=== PATIENT | male | born 1960 | race American Indian/Alaskan Native ===

== ENCOUNTER 2017-12-01 19:47 | Inpatient (IN) | payer MEDICAID, OTHER ==
[2017-12-01 20:43] LABS: BASO # 0.1 K/uL (0.0-0.2); EOS % 0.5 % (0.0-4.0); LYMPH # 2.8 K/uL (1.0-4.3); NEUT # 4.8 K/uL (1.8-7.0); NRBC % 0.1 % (0.0-2.0); WHITE BLOOD COUNT 8.6 K/uL (4.8-10.8)
[2017-12-01 20:52] LABS: URINE BILIRUBIN NEGATIVE (NEGATIVE); URINE BLOOD NEGATIVE (NEGATIVE); URINE CLARITY Clear (Clear); URINE COLOR Yellow (YELLOW); URINE GLUCOSE (UA) NORMAL (Normal); URINE LEUKOCYTE ESTERASE NEG Leu/uL (Negative); URINE PROTEIN NEGATIVE (NEGATIVE)
[2017-12-01 20:54] LABS: BASO % 0.6 % (0.0-2.0); LYMPH % 32.4 % (20.0-40.0); MEAN CELL VOLUME 87.2 fL (80.0-94.0); MEAN CORPUSCULAR HEMOGLOBIN 28.7 pg (27.0-31.0); MEAN PLATELET VOLUME 10.3 fL (7.2-11.7); MONO # 0.9 K/uL (0.0-0.8); MONO % 10.1 % (0.0-10.0); NEUT % 56.4 % (50.0-75.0); RBC 4.17 Mil/uL (4.40-5.90); RED CELL DISTRIBUTION WIDTH 14.9 % (11.5-14.5)
[2017-12-01 20:56] LABS: ALB/GLOB RATIO 0.8 (1.0-2.1); ALBUMIN 4.2 g/dL (3.5-5.0); ALT/SGPT 115 U/L (21-72); AST/SGOT 364 U/L (17-59); BLOOD UREA NITROGEN 8 mg/dL (9-20); CALCIUM 8.6 mg/dl (8.6-10.4); GFR AFRICAN-AMERICAN > 60; GFR NON-AFRICAN AMERICAN > 60
[2017-12-01 21:00] LABS: BARBITURATES, UR NEGATIVE (NEGATIVE); BENZODIAZEPINES, UR NEGATIVE (NEGATIVE); OPIATES, UR NEGATIVE (NEGATIVE); PHENCYCLIDINE, UR NEGATIVE (NEGATIVE)
--- NOTE | 2017-12-01 21:49 | C.PDOC ---
History Of Present Illness <Xu Chang - Last Filed: 12/02/17 00:48> <MichinirajMarquise - Last Filed: 12/02/17 02:53> 57 year old male presents to the ED as a prescreen for alcohol detox. He denies suicidal/homicidal ideation and has no physical complaints at this time. (Bernardo XuGermán) History Per: Patient History/Exam Limitations: no limitations Onset/Duration Of Symptoms: Hrs Current Symptoms Are (Timing): Still Present Suicide/Self Injury Attempted (Context): None Modifying Factor(s): Alcohol Associated Symptoms: denies: Suicidal Thoughts, Suicidal Plan Involuntary Hold By: None Recent travel outside of the [place]: No Additional History Per: Patient <Xu Chang - Last Filed: 12/02/17 00:48> <Marquise Greer - Last Filed: 12/02/17 02:53> Time Seen by Provider: 12/01/17 21:15 Chief Complaint (Nursing): Substance Abuse Past Medical History Reviewed: Historical Data, Nursing Documentation, Vital Signs - Medical History PMH: Anxiety, Asthma, Depression, Diabetes, HTN Denies: Hepatitis, HIV, Seizures, Sexually Transmitted Disease Surgical History: Cholecystectomy Family History: States: Unknown Family Hx - Social History Hx Alcohol Use: Yes Hx Substance Use: Yes <Xu Chang - Last Filed: 12/02/17 00:48> Vital Signs: Last Vital Signs Temp 98.0 F 12/02/17 02:19 Pulse 65 12/02/17 02:19 Resp 18 12/02/17 02:19 BP 113/75 12/02/17 02:19 Pulse Ox 96 12/02/17 02:19 Review Of Systems Psych: Positive for: Other (prescreen alcohol detox ). Negative for: Suicidal ideation <Xu Chang - Last Filed: 12/02/17 00:48> Physical Exam - Physical Exam Appears: Non-toxic, No Acute Distress, Other (visibly intoxicated, tall, thin ) Skin: Normal Color, Warm, Dry Head: Atraumatic, Normacephalic Eye(s): bilateral: Normal Inspection, Other (non-icteric sclera ) Oral Mucosa: Moist, Other (alcohol on breath ) Neck: Supple Chest: Symmetrical, No Deformity Cardiovascular: Rhythm Regular Respiratory: Normal Breath Sounds, No Accessory Muscle Use Extremity: Normal ROM Neurological/Psych: Other (arousable to touch and verbal stimuli ) <Xu Chang - Last Filed: 12/02/17 00:48> ED Course And Treatment - Laboratory Results Result Diagrams: 12/01/17 20:37 12/01/17 20:37 Lab Interpretation: Abnormal (etoh 403) O2 Sat by Pulse Oximetry: 97 (on RA) Pulse Ox Interpretation: Normal Progress Note: bloodwork and urinalysis ordered and reviewed. Reevaluation Time: 00:48 Reassessment Condition: Improved - Physician Consult Information Outcome Of Conversation: 0000: d/w Crisis, pending Breathalizer and reasessment @ 2AM <Xu Chang - Last Filed: 12/02/17 00:48> - Laboratory Results Result Diagrams: 12/01/17 20:37 12/01/17 20:37 <Marquise Greer - Last Filed: 12/02/17 02:53> Medical Decision Making <Xu Chang - Last Filed: 12/02/17 00:48> <Marquise Greer - Last Filed: 12/02/17 02:53> Medical Decision Making: prescreen for detox, intoxicated on arrival 0100: pending sobriety for detox Adm (Xu Chang) Disposition Doctor Will See Patient In The: Hospital - Disposition Disposition Time: 01:00 <Xu Chang - Last Filed: 12/02/17 00:48> Discussed With : Vicki Vergara Comment: accepted the pt on his service and took over the carea t2:52 AM Doctor Will See Patient In The: Hospital Counseled Patient/Family Regarding: Studies Performed, Diagnosis - POA Present On Arrival: None <Marquise Greer - Last Filed: 12/02/17 02:53> - Disposition Disposition: HOSPITALIZED Condition: FAIR Forms: [facility] (Norwegian) - Clinical Impression Clinical Impression: Alcohol abuse - Scribe Statement The provider has reviewed the documentation as recorded by the Scribe (Lenora Harman) <Xu Chang - Last Filed: 12/02/17 00:48> <Marquise Greer - Last Filed: 12/02/17 02:53> - Scribe Statement Provider Attestation: All medical record entries made by the Scribe were at my direction and personally dictated by me. I have reviewed the chart and agree that the record accurately reflects my personal performance of the history, physical exam, medical decision making, and the department course for this patient. I have also personally directed, reviewed, and agree with the discharge instructions and disposition. (Xu Chang) Physician Patient Turnover Patient Signed Over To: Maruqise Greer Handoff Comments: pending re-eval by Crisis @ 2AM <Xu Chang - Last Filed: 12/02/17 00:48> Decision To Admit <Xu Chang - Last Filed: 12/02/17 00:48> - Pt Status Changed To: Hospital Disposition Of: Inpatient - Admit Certification Admit to Inpatient:: After my assessment, the patient will require hospitalization for at least two midnights. This is because of the severity of symptoms shown, intensity of services needed, and/or the medical risk in this patient being treated as an outpatient. - InPatient: Physician Admission Certification: I certify that this patient requires 2 or more midnights of care for the following reason:: After my assessment, the patient will require hospitalization for at least two midnights. This is because of the severity of symptoms shown, intensity of services needed, and/or the medical risk in this patient being treated as an outpatient. - . Bed Request Type: Detox Admitting Physician: Vicki Vergara <Marquise Greer - Last Filed: 12/02/17 02:53> - . Patient Diagnosis: Alcohol abuse
--- NOTE | 2017-12-02 03:42 | PCM.BM ---
<Roxann Zapata - Last Filed: 12/02/17 03:40> Treatment Plan Problems - Problems identified on initial assessmt Alcohol dependence Date Initiated: 12/02/17 Time Initiated: 04:00 Assessment reference: NA Status: Active Treatment assets and liabiliti Patient Assests: ADL independent, negotiates basic needs - Milieu Protocol Maintain good personal hygiene: daily Encourage regular showers, daily Remind patient to perform daily oral care, daily Assist patient to perform ADL's Conduct patient checks and document Observation sheet: Q15 minutes Maintain personal safety: every shift Educate patient to report safety concerns to staff, every shift Monitor environment for contraband/sharps Medication safety: Monitor for expected outcome, potential side effects: every shift, Assess barriers to learning: every shift, Assess readiness for medication education: every shift <Geo Beckford - Last Filed: 12/02/17 11:52> - Diagnosis (1) Alcohol use disorder, severe, dependence Status: Acute Interventions: 12/02/17 11:52 * Assess 7x/week regarding severity of withdrawal * Educate regarding risks, benefits, side effects and alternatives of medications * Use Motivational Interviewing for abstinence * Use CBT for relapse prevention * Medication management for withdrawal symptoms * Encourage medication assisted treatment * <Kiera Brar - Last Filed: 12/03/17 13:27> Family Contact Family involvement: Matt/SO not involved - Goals for Treatment Patient goals for treatment: Complete detox and return to [facility]. Discharge/Continuing Care - Education Needs Education Needs: Patient Medication, Patient Diagnosis/Disease Process, Patient Coping Skills, Patient Anger Management skills, Patient Placement options, Patient Community resources, Significant Other Medication, Significant Other Diagnosis/Disease Process, Significant Other Coping Skills, Significant Other Anger Management skills, Significant Other Placement options, Significant Other Community resources - Discharge Discharge Criteria: No longer exhibiting s/s of withdrawal, Reduction of target symptoms Discharge to:: Home, With Family - Treatment Team Participation Patient/Family/SO Statement: 12/03/17 13:26 "I [facility] go back to [facility]..." Discussed with Family/SO: No Was Patient/Family/SO present at Treatment Team Meeting: Yes
[2017-12-02] MEDS: Multiple Vitamins Tab PO SCH (10:37)
--- NOTE | 2017-12-02 11:31 | PCM.PSYCH ---
Initial Psychiatric Evaluation - Initial Psychiatric Evaluation Type of Admission: Voluntary Legal Status: Capacity Chief Complaint (in patient's own words): The alcohol was starting to effect my health History of Present Illness and Precipitating Events: Mr. Cuello is a 57-year-old male who does not work, is and living with his ; they have 7 adult children. Pt has a history of alcohol, tobacco, and substance abuse. He is coming for detox from alcohol because the alcohol has now been affecting his health. He usually drinks (2) 6-packs and 10 nips of hard alcohol. He started drinking when he was 13 years old. He also has a 35-year history with heroin use, but has been clean for the past 6 years on methadone 80 mg. He smokes 10 cigarettes daily. Pt denies other substance abuse. 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 His currently uses cocaine and heroin. Current Medications: Active Medications Generic Name Dose Route Start Last Admin Trade Name Freq PRN Reason Stop Dose Admin Clonidine HCl 0.1 mg 12/02/17 00:29 Catapres PO Q4H PRN Symptoms of alcohol withdrawl Folic Acid 1 mg 12/02/17 10:00 12/02/17 10:38 Folic Acid PO 1 mg DAILY CODEY Administration Hydrochlorothiazide 12.5 mg 12/02/17 10:15 Microzide PO DAILY CODEY Lisinopril 20 mg 12/02/17 10:15 Zestril PO DAILY CODEY Lorazepam 1 mg 12/02/17 00:29 12/02/17 04:10 Ativan PO 1 mg Q4H PRN Administration Symptoms of alcohol withdrawl Lorazepam 2 mg 12/02/17 06:00 12/02/17 08:27 Ativan PO 12/07/17 05:59 2 mg Q4 CODEY Administration Taper Methadone HCl 80 mg 12/02/17 11:30 Methadone PO DAILY CODEY Multivitamins 1 tab 12/02/17 10:00 12/02/17 10:37 Hexavitamin PO 1 tab DAILY CODEY Administration Pneumococcal Polyvalent Vaccine 0.5 ml 12/04/17 10:00 Pneumovax 23 Vaccine IM 12/04/17 10:01 .ONCE ONE Thiamine HCl 100 mg 12/02/17 10:00 12/02/17 10:37 Vitamin B1 Tab PO 100 mg DAILY CODEY Administration Trazodone HCl 50 mg 12/02/17 00:29 Desyrel PO HS PRN Insomnia Past Psychiatric History - Past Psychiatric History Previous Treatment History: None Pertinent Medical Hx (Current Medical&Sleep Prob, Allergies): Allergies Allergy/AdvReac Type Severity Reaction Status Date / Time No Known Allergies Allergy Verified 12/01/17 19:53 Albuterol Sulfate [Ventolin Hfa] 1 puff IH DAILY 12/01/17 Lisinopril/Hydrochlorothiazide [Lisinopril-Hctz 20-12.5 mg Tab] 1 each PO DAILY 12/01/17 hydrOXYzine Pamoate [Vistaril] 50 mg PO DAILY 12/01/17 Review of Systems - Neurological Neurological: UNREMARKABLE - Psychiatric Psychiatric: Abnormal Sleep Pattern, Anhedonia, Anxiety, Change in Appetite, Depression, Difficulty Concentrating, Irritability. absent: Hallucinations, Homicidal Ideation, Suicidal Ideation Mental Status Examination - Personal Presentation Personal Presentation: Looks older than stated age - Affect Affect: Constricted - Motor Activity Motor Activity: Calm - Reliability in Providing Information Reliability in Providing Information: Fair - Speech Speech: Organized - Mood Mood: Depressed, Anxious - Formal Thought Process Formal Thought Process: No Impairment - Cognitive Functions Orientation: Person, Place, Situation, Time Sensorium: Drowsy Attention/Concentration: Easily distracted Estimate of Intelligence: Average Judgement: Intact, as evidence by: Insight regarding need for hospitalization Memory: Recent intact, as evidence by: Ability to recall events of the day, Remote intact, as evidenced by: Abilit to recall sig. life events - Risk Risk: Seizure, Withdrawal, Diminished functioning - Strength & Assets Inventory Strength & Assets Inventory: Cooperative - Limitations Limitations: Other DSM 5 DX - DSM 5 DSM 5 Diagnosis: Alcohol withdrawal Alcohol use d/o - severe Opioid use d/o- severe, on maintenance Substance-induced depression r/o Major depressive d/o Tobacco use d/o moderate Disc hernia Spinal stenosis - Recommended/Plan of Treatment Treatment Recommendations and Plan of Treatment: Taper with ativam Continue methadone maintenance, 80 mg Remeron for depression Gabapentin for augmentation if needed As needed medications All risks, benefits and alternatives of the meds discussed, and the pt agreed and understood. Attend groups and activities Supportive therapy and psychoeducation MS for abstinence CBT for relapse prevention Encourage MAT Refer to rehab or IOP, and self-help groups Smoking cessation with MS Nicotine patch if needed 34 min Projected ELOS: 4-5 days Prognosis: good w treatment - Smoking Cessation Smoking Cessation Initiated: Yes
[2017-12-02] MEDS: Methadone 40 mg Tab PO SCH (11:43)
[2017-12-03] MEDS: Multiple Vitamins Tab PO SCH (09:39)
[2017-12-03] MEDS: Methadone 40 mg Tab PO SCH (09:40)
--- NOTE | 2017-12-03 13:13 | PCM.PYCHPN ---
Psychiatric Progress Note - Psychiatric Progress Note Patient seen today, length of contact: 16 min Patient Chief Complaint: "Feeling very sick" Problems Identified/Issues Discussed: The pt is seen, chart reviewed, case discussed with staff. The pt is compliant with medications and reports no side-effects. Symptoms are improving but needs more time to stabilize. Still very weak, withdrawing and unable to participate Pt attends groups and activities. Support given, psycho-education provided. After care discussed. Medication Change: Yes (detox changes daily) Medical Record Reviewed: Yes Mental Status Examination - Cognitive Function Orientation: Person, Place, Situation, Time Memory: Impaired Attention: Poor Concentration: Poor Association: WNL Fund of Knowledge: WNL - Mood Mood: Depressed, Anxious - Affect Affect: Constricted - Speech Speech: Appropriate - Formal Thought Process Formal Thought Process: No Impairment - Suicidal Ideation Suicidal Ideation: No - Homicidal Ideation Homicidal Ideation: No Goal/Treatment Plan - Goal/Treatment Plan Need for Continued Stay: Discharge may exacerbated symptoms, Severe functional impairment Progress Toward Problem(s) and Goals/Treatment Plan: Taper with ativam Continue methadone maintenance, 80 mg Remeron for depression Gabapentin for augmentation if needed As needed medications All risks, benefits and alternatives of the meds discussed, and the pt agreed and understood. Attend groups and activities Supportive therapy and psychoeducation [place] for abstinence CBT for relapse prevention Encourage MAT Refer to rehab or IOP, and self-help groups Smoking cessation with [place] Nicotine patch if needed Estimated Date of D/C: 12/08/17
[2017-12-04] MEDS: Multiple Vitamins Tab PO SCH (09:29)
[2017-12-04] MEDS: Methadone 40 mg Tab PO SCH (09:30)
[2017-12-04] MEDS ORDERED: Pneumococcal 23-Valent Vaccine IM ONE (10:00)
--- NOTE | 2017-12-04 14:14 | PCM.PYCHPN ---
Psychiatric Progress Note - Psychiatric Progress Note Patient seen today, length of contact: 15 min Patient Chief Complaint: "Very tired" Problems Identified/Issues Discussed: The pt is seen, chart reviewed, case discussed with staff. Support and psychoeducation given, CBT and FL used briefly No new symptoms reported, improving slowly and needs more time No SEs from medications, risks discussed. After care discussed - will return to Methadone clinic He is advised to ask them to lower his methadone b/c he is too sedated afetr the dose Medication Change: Yes (detox changes daily) Medical Record Reviewed: Yes Mental Status Examination - Cognitive Function Orientation: Person, Place, Situation, Time Memory: Impaired Attention: Poor Concentration: Poor Association: WNL Fund of Knowledge: WNL - Mood Mood: Depressed, Anxious - Affect Affect: Constricted - Speech Speech: Appropriate - Formal Thought Process Formal Thought Process: No Impairment - Suicidal Ideation Suicidal Ideation: No - Homicidal Ideation Homicidal Ideation: No Goal/Treatment Plan - Goal/Treatment Plan Need for Continued Stay: Discharge may exacerbated symptoms, Severe functional impairment Progress Toward Problem(s) and Goals/Treatment Plan: Taper with ativam Continue methadone maintenance, 80 mg Remeron for depression Gabapentin for augmentation if needed As needed medications All risks, benefits and alternatives of the meds discussed, and the pt agreed and understood. Attend groups and activities Supportive therapy and psychoeducation [place] for abstinence CBT for relapse prevention Encourage MAT Refer to rehab or IOP, and self-help groups Smoking cessation with FL Nicotine patch if needed Estimated Date of D/C: 12/07/17
[2017-12-05] MEDS: Multiple Vitamins Tab PO SCH (10:02)
[2017-12-05] MEDS: Methadone 40 mg Tab PO SCH (10:03)
--- NOTE | 2017-12-05 14:46 | PCM.PYCHPN ---
Psychiatric Progress Note - Psychiatric Progress Note Patient seen today, length of contact: 16 min Patient Chief Complaint: "Not well" Problems Identified/Issues Discussed: The pt is seen, chart reviewed, case discussed with staff. The pt is compliant with medications and reports no side-effects. Symptoms are improving but needs more time to stabilize. Pt attends groups and activities. Support given, psycho-education provided. After care discussed. - [facility] Still tired, fatigued, low energy Medication Change: Yes (detox changes daily) Medical Record Reviewed: Yes Mental Status Examination - Cognitive Function Orientation: Person, Place, Situation, Time Memory: Impaired Attention: Poor Concentration: Poor Association: WNL Fund of Knowledge: WNL - Mood Mood: Depressed, Anxious - Affect Affect: Constricted - Speech Speech: Appropriate - Formal Thought Process Formal Thought Process: No Impairment - Suicidal Ideation Suicidal Ideation: No - Homicidal Ideation Homicidal Ideation: No Goal/Treatment Plan - Goal/Treatment Plan Need for Continued Stay: Discharge may exacerbated symptoms, Severe functional impairment Progress Toward Problem(s) and Goals/Treatment Plan: Taper with ativam Continue methadone maintenance, 80 mg Remeron for depression Gabapentin for augmentation if needed As needed medications All risks, benefits and alternatives of the meds discussed, and the pt agreed and understood. Attend groups and activities Supportive therapy and psychoeducation MT for abstinence CBT for relapse prevention Encourage MAT Refer to rehab or IOP, and self-help groups Smoking cessation with MT Nicotine patch if needed Estimated Date of D/C: 12/07/17
--- NOTE | 2017-12-06 10:03 | PCM.PYCHPN ---
Psychiatric Progress Note - Psychiatric Progress Note Patient seen today, length of contact: 16 min Patient Chief Complaint: "I'm not feeling well." Problems Identified/Issues Discussed: The pt is seen, chart reviewed, case discussed with staff. The pt reported that yesterday he was not feeling well. He reported that he had chest pain on and off yesterday. However, he is feeling better today. He denied any difficulty in breathing. He denied any weakness in his body. Pt stated that his withdrawal symptoms are improving. Symptoms are improving but needs more time to stabilize. After care discussed, support and psychoeducation given. DSM 5 Symptoms Update: Alcohol withdrawal Alcohol use d/o - severe Opioid use d/o- severe, on maintenance Substance-induced depression r/o Major depressive d/o Tobacco use d/o moderate Disc hernia Spinal stenosis Medication Change: Yes (detox changes daily) Medical Record Reviewed: Yes Mental Status Examination - Cognitive Function Orientation: Person, Place, Situation, Time Memory: Impaired Attention: Poor Concentration: Poor Association: WNL Fund of Knowledge: WNL Decription of patient's judgement and insights: improving/improving Addtional comments: pt is lying in the bed, calm and cooperative - Mood Mood: Depressed - Affect Affect: Constricted - Speech Speech: Appropriate - Formal Thought Process Formal Thought Process: No Impairment Psychotic Thoughts and Behaviors: denied - Suicidal Ideation Suicidal Ideation: No - Homicidal Ideation Homicidal Ideation: No Plan: denied Goal/Treatment Plan - Goal/Treatment Plan Need for Continued Stay: Discharge may exacerbated symptoms, Severe functional impairment Progress Toward Problem(s) and Goals/Treatment Plan: Continue current meds as before Consulted medicine team Will f/u with the EKG and medicine team recommendations As needed medications All risks, benefits and alternatives of the meds discussed, and the pt agreed and understood. Attend groups and activities Supportive therapy and psychoeducation [place] for abstinence CBT for relapse prevention Encourage MAT Refer to rehab or IOP, and self-help groups Smoking cessation with [place] Nicotine patch if needed Estimated Date of D/C: 12/07/17 - Smoking Cessation Smoking Cessation Initiated: Yes
[2017-12-06] MEDS: Multiple Vitamins Tab PO SCH (10:04)
[2017-12-06] MEDS: Methadone 40 mg Tab PO SCH (10:05)
--- NOTE | 2017-12-07 01:22 | CON ---
DATE: 12/06/2017 CARDIOLOGY CONSULTATION REASON FOR CONSULTATION: Chest pain. HISTORY OF PRESENT ILLNESS: The patient is a 57-year-old male who has a history of hypertension and stroke in the past with residual right hemiparesis according to the patient and affecting his memory. The patient was admitted to detox department. The patient did report throbbing chest pain earlier. He denies any chest pain at this time. The patient is unaware of any history of heat attack in the past and does not recall undergoing any cardiac catheterization or coronary intervention. MEDICATIONS: Ativan 1 mg p.o. every 4 hours p.r.n., clonidine 0.1 mg every 4 hours p.r.n., Desyrel 50 mg at bedtime, folic acid 1 mg daily, hexavitamin one tablet daily, methadone 80 mg daily, hydrochlorothiazide 12.5 mg once a day, thiamine 100 mg once a day, Zestril 20 mg once a day. REVIEW OF SYSTEMS: No fever or chills. No nausea or vomiting. No recent fall. PHYSICAL EXAMINATION: GENERAL: The patient is a middle-aged male who does not appear to be in any distress. VITAL SIGNS: Blood pressure 125/74, heart rate 60, temperature 98.4, and respiration 18. HEENT: Normocephalic. CHEST: Clear. HEART: S1, S2 are regular. ABDOMEN: Soft. EXTREMITIES: No edema. LABORATORY DATA: SMA-7: Sodium 147, potassium 3.8, chloride 100, CO2 of 31, glucose 107, BUN 8, creatinine 0.7. AST and ALT are 364 and 115 restrictively. Alkaline phosphatase is elevated at 137. Urine drug screen positive for methadone. Alcohol level was 415. EKG reveals sinus rhythm with nonspecific T-wave changes. ASSESSMENT: 1. Atypical chest pain. 2. Alcohol intoxication. 3. Alcoholic liver disease. RECOMMENDATIONS: Continue current folic acid, hydrochlorothiazide, thiamine, and Zestril. Start aspirin 81 mg once a day. Obtain an echocardiogram, serum D-dimer, and one set of troponin. Fidel Franco MD
[2017-12-07] MEDS: Multiple Vitamins Tab PO SCH (10:06)
[2017-12-07] MEDS: Methadone 40 mg Tab PO SCH (10:09)
--- NOTE | 2017-12-07 11:02 | PCM.PYCHPN ---
Psychiatric Progress Note - Psychiatric Progress Note Patient seen today, length of contact: 16 min Patient Chief Complaint: "I'm feeling better then yesterday." Problems Identified/Issues Discussed: The pt is seen, chart reviewed, case discussed with staff. The pt reported that he is feeling better then yesterday. He reported that his chest pain is improving as well as he is more steady to walk. He is feeling better today. He denied any difficulty in breathing. He denied any weakness in his body. Pt stated that his withdrawal symptoms are improving. Symptoms are improving but needs more time to stabilize. After care discussed, support and psychoeducation given. Medication Change: Yes (detox changes daily) Medical Record Reviewed: Yes Mental Status Examination - Cognitive Function Orientation: Person, Place, Situation, Time Memory: Impaired Attention: Poor Concentration: Poor Association: WNL Fund of Knowledge: WNL Decription of patient's judgement and insights: improving/improving Addtional comments: Pt is walking with cane, and needs support - Mood Mood: Depressed - Affect Affect: Constricted - Speech Speech: Appropriate - Formal Thought Process Formal Thought Process: No Impairment Psychotic Thoughts and Behaviors: denied - Suicidal Ideation Suicidal Ideation: No Plan: denied - Homicidal Ideation Homicidal Ideation: No Plan: denied Goal/Treatment Plan - Goal/Treatment Plan Need for Continued Stay: Discharge may exacerbated symptoms, Severe functional impairment Progress Toward Problem(s) and Goals/Treatment Plan: Continue current meds as before Consulted medicine team, and cardiology. will f/u with OT/PT Will f/u with the EKG and medicine team recommendations As needed medications All risks, benefits and alternatives of the meds discussed, and the pt agreed and understood. Attend groups and activities Supportive therapy and psychoeducation [place] for abstinence CBT for relapse prevention Encourage MAT Refer to rehab or IOP, and self-help groups Smoking cessation with [place] Nicotine patch if needed Estimated Date of D/C: 12/07/17 - Smoking Cessation Smoking Cessation Initiated: Yes
--- NOTE | 2017-12-07 18:59 | PN ---
DATE: 12/07/2017 SUBJECTIVE: The patient denies chest pain. PHYSICAL EXAMINATION: VITAL SIGNS: Blood pressure 126/75, heart rate 85, temperature 98.9, respirations 20. HEENT: Normocephalic. CHEST: Clear. HEART: S1 and S2, regular. ABDOMEN: Soft. EXTREMITIES: No edema. LABORATORY DATA: sets of troponins were negative. ASSESSMENT AND PLAN: 1. Chest pain, myocardial infarction is rule out. 2. Status post alcohol intoxication. 3. Alcoholic liver disease. 4. History of cerebrovascular accident. RECOMMENDATIONS: 1. Continue aspirin 81 mg once a day. 2. Clonidine 0.1 mg every 4 hours p.r.n. 3. Desyrel 50 mg at bedtime. 4. Methadone 80 mg once a day. 5. Hydrochlorothiazide 12.5 mg daily. 6. Thiamine 100 mg once a day. 7. Zestril 20 mg once a day. 8. Echo is scheduled to be performed tomorrow. Fidel Franco MD
--- NOTE | 2017-12-08 08:47 | PCM.PYCHDC ---
Mental Status Examination - Mental Status Examination Orientation: Person Discharge Summary - Discharge Note Consultations:: List each consultation separately and include: 1. Reason for request. 2. Findings. 3. Follow-up Summary of Hospital Course include:: 1. Description of specific treatment plan utilized for patients during their course of treatmen. 2. Summarize the time- course for resolution of acute symptoms and/or regressed behaviors. 3. Describe issues identified and worked on during hospitalization. 4. Describe medication utilized. 5. Describe medical problems identified and treated. 6. Reassessment of suicide risk Summary of Hospital Course: Mr. Cuello is a 57-year-old male who does not work, is and living with his ; they have 7 adult children. Pt has a history of alcohol, tobacco, and substance abuse. He is coming for detox from alcohol because the alcohol has now been affecting his health. He usually drinks (2) 6-packs and 10 nips of hard alcohol. He started drinking when he was 13 years old. He also has a 35-year history with heroin use, but has been clean for the past 6 years on methadone 80 mg. He smokes 10 cigarettes daily. Pt denies other substance abuse. 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 His currently uses cocaine and heroin. He will return to [facility]. - Diagnosis (1) Alcohol use disorder, severe, dependence Current Visit: Yes Status: Acute - Final Diagnosis (DSM 5) Condition upon Discharge: FAIR Disposition: HOME/ ROUTINE Follow-up Treatment Plan: Taper with ativam Continue methadone maintenance, 80 mg Remeron for depression Gabapentin for augmentation if needed As needed medications All risks, benefits and alternatives of the meds discussed, and the pt agreed and understood. Attend groups and activities Supportive therapy and psychoeducation [facility] for abstinence CBT for relapse prevention Encourage MAT Refer to rehab or IOP, and self-help groups Smoking cessation with [facility] Nicotine patch if needed Prescriptions/Medication Reconciliation: Aspirin [Aspirin Chewable] 81 mg PO DAILY #30 chew hydroCHLOROthiazide [Microzide] 12.5 mg PO DAILY #30 cap Lisinopril [Zestril] 20 mg PO DAILY #30 tab Mirtazapine [Remeron] 15 mg PO HS #30 tab
[2017-12-08 09:00] VITALS: PULSE 81; TEMP 98.1; O2SAT 98
[2017-12-08] MEDS: Multiple Vitamins Tab PO SCH (10:18)
[2017-12-08] MEDS: Methadone 40 mg Tab PO SCH (10:20)
[2017-12-08 13:18] VITALS: BP 123/77; RESP 20
--- NOTE | 2017-12-08 19:39 | CARD ---
APPROVED REPORT Date of service: 12/08/2017 EXAM: Two-dimensional and M-mode echocardiogram with Doppler and color Doppler. Other Information Quality : GoodRhythm : INDICATION Chest Pain ALCOHOL ABUSE 2D DIMENSIONS IVSd1.0 (0.7-1.1cm)LVDd4.4 (3.9-5.9cm) PWd1.2 (0.7-1.1cm)LVDs2.1 (2.5-4.0cm) FS (%) 53.8 %LVEF (%)84.8 (>50%) M-Mode DIMENSIONS RVDd2.46 (2.1-3.2cm)Left Atrium (MM)3.15 (2.5-4.0cm) IVSd0.94 (0.7-1.1cm)Aortic Root3.15 (2.2-3.7cm) LVDd4.82 (4.0-5.6cm)Aortic Cusp Exc.2.34 (1.5-2.0cm) PWd1.09 (0.7-1.1cm)FS (%) 49 % LVDs2.46 (2.0-3.8cm)LVEF (%)80 (>50%) Mitral Valve MV E Mjaanddl05.1cm/sMV A Apgqeyxb93.4cm/sE/A ratio1.2 TDI E/Lateral E'0.0E/Medial E'0.0 Tricuspid Valve TR Peak Equeusxh779dr/sTR Peak Gr.[id number] LEFT VENTRICLE The left ventricle is normal size. There is normal left ventricular wall thickness. The left ventricular function is normal. The left ventricular ejection fraction is within the normal range. 66% No regional wall motion abnormalities noted. The left ventricular diastolic function is normal. No left ventricle thrombus noted on this study. There is no ventricular septal defect visualized. There is no left ventricular aneurysm. There is no mass noted in the left ventricle. RIGHT VENTRICLE The right ventricle is normal size. There is normal right ventricular wall thickness. The right ventricular systolic function is normal. ATRIA The left atrium size is normal. The right atrium size is normal. The interatrial septum is intact with no evidence for an atrial septal defect. AORTIC VALVE The aortic valve is normal in structure and function. No aortic regurgitation is present. There is no aortic valvular stenosis. There is no aortic valvular vegetation. MITRAL VALVE The mitral valve is normal in structure and function. There is no evidence of mitral valve prolapse. There is no mitral valve stenosis. There is no mitral valve regurgitation noted. TRICUSPID VALVE The tricuspid valve is normal in structure and function. There is mild tricuspid valve regurgitation noted. There is no tricuspid valve prolapse or vegetation. There is no tricuspid valve stenosis. PULMONIC VALVE The pulmonary valve is normal in structure and function. There is no pulmonic valvular regurgitation. There is no pulmonic valvular stenosis. GREAT VESSELS The aortic root is normal in size. The ascending aorta is normal in size. The pulmonary artery is normal. The IVC is normal in size and collapses >50% with inspiration. PERICARDIAL EFFUSION The pericardium appears normal. There is no pleural effusion. <Conclusion> Normal left ventricualr systolic function and wall motion. Normal Doppler.
--- NOTE | 2017-12-09 15:10 | CARD ---
APPROVED REPORT Date of service: 12/06/2017 EKG Measurement Heart [id number] <Conclusion> Normal sinus rhythm Minimal voltage criteria for LVH, may be normal variant Borderline ECG
--- NOTE | 2017-12-09 15:10 | CARD ---
APPROVED REPORT Date of service: 12/06/2017 EKG Measurement Heart [id number] [place] [id number] <Conclusion> Normal sinus rhythm Nonspecific T wave abnormality Abnormal ECG
== END 2017-12-08 13:18 | disposition home or self-care (01) | DRG 745 ==
LOC: C.ER 19:47 → C.7D 12-02 02:51
PROVIDERS: ADMIT Psychiatry & Neurology Psychiatry; ATTEND Emergency Medicine
PROC: HZ2ZZZZ Detoxification Services for Substance Abuse Treatment (ICD-10-PCS; principal; 2017-12-02)
PROC: HZ59ZZZ Individual Psychotherapy for Substance Abuse Treatment, Supportive (ICD-10-PCS; 2017-12-02)
PROC: HZ46ZZZ Group Counseling for Substance Abuse Treatment, Psychoeducation (ICD-10-PCS; 2017-12-02)
PROC: GZ3ZZZZ Medication Management (ICD-10-PCS; 2017-12-02)
PROC: HZ80ZZZ Medication Management for Substance Abuse Treatment, Nicotine Replacement (ICD-10-PCS; 2017-12-02)
DX: F10.230 Alcohol dependence with withdrawal, uncomplicated (principal); F11.10 Opioid abuse, uncomplicated; F10.220 Alcohol dependence with intoxication, uncomplicated; F19.94 Other psychoactive substance use, unspecified with psychoactive substance-induced mood disorder; F17.210 Nicotine dependence, cigarettes, uncomplicated; E11.9 Type 2 diabetes mellitus without complications; F31.9 Bipolar disorder, unspecified; I10 Essential (primary) hypertension; R07.89 Other chest pain; K70.9 Alcoholic liver disease, unspecified; M48.00 Spinal stenosis, site unspecified; J45.909 Unspecified asthma, uncomplicated; Y90.8 Blood alcohol level of 240 mg/100 ml or more; I69.359 Hemiplegia and hemiparesis following cerebral infarction affecting unspecified side